=== PATIENT | male | born 1950 | race African-American/Black ===

== ENCOUNTER 2021-03-23 13:00 | Inpatient (IN) ==
[2021-03-23] MEDS ORDERED: HYDROmorphone 2 MG/1 ML VIAL IV STA (14:07)
[2021-03-23] MEDS ORDERED: ONDANSETRON 4 MG/2 ML VIAL IV STA (14:07)
[2021-03-23] MEDS ORDERED: MAGNESIUM HYDROXIDE SUSP 30 ML UDCUP PO PRN (14:13)
[2021-03-23] MEDS: DEXTROSE 5% NACL 0.45% 1,000 ML IV SCH (14:37)
[2021-03-23 14:41] LABS: Basophils % 0.2 % (0.0-0.8); Hematocrit 34.4 VOL% (42.0-52.0); Hemoglobin 10.9 GM/DL (14.0-18.0); Immature Granulocytes % 0.7 %; Lymphocytes # 0.5 10*3/uL (1.4-4.0); Lymphocytes % 3.1 % (21.2-54.2); Mean Corpuscular HGB Conc 31.7 GM/DL (32-36); Mean Platelet Volume 9.7 FL (9.6-12.0); Monocytes % 4.3 % (1.7-12.7); Neutrophils % 91.7 % (38.7-73.9); Platelet Count 439 T/CUMM (130-400); Red Cell Distribution Width 16.6 % (9.3-17.3); White Blood Count 14.6 T/CUMM (4-12)
[2021-03-23 15:04] LABS: Albumin 2.7 G/DL (3.4-5.0); Bilirubin,Total 0.5 MG/DL (0.20-1.00); Calcium 9.4 MG/DL (8.5-10.1); Osmolality,Calculated 282.7 MOS/KG (273-304); Potassium 3.9 MMOL/L (3.5-5.1); Total Protein 8.2 G/DL (6.4-8.2)
[2021-03-23 15:12] LABS: Hypochromasia 2+; Lymphocytes 4 % (20-55); Segmented Neutrophils 91 % (50-85); Total Cells Counted 100
[2021-03-23 15:13] LABS: Platelet Estimate Increased; Polychromasia Slight
[2021-03-23 17:40] LABS: INR 1.2; PT Patient Result 12.9 SECS (10.5-12.0); Partial Thromboplastin Time 25.6 SECS (23.9-33.8)
[2021-03-23] MEDS: ALBUTEROL/IPRATROPIUM 3 ML NEB RESP TX SCH (19:48)
[2021-03-23] MEDS: MEGESTROL 40 MG TABLET PO SCH (20:53)
[2021-03-23 22:28] LABS: Bacteria,Urine Occasional /HPF (Few); Bilirubin,Urine Negative (Negative); Blood, Urine Negative (Negative); Glucose,Urine (UA) Negative (Negative); Ketones,Urine Negative (Negative); Nitrite,Urine Negative (Negative); Protein,Urine 30 MG/DL; RBC,Urine 2 /HPF (0-4); Squamous Epithelial Cell,Urine Occasional /HPF (0-10); Urine Appearance Slightly Hazy (Clear); Urine Color Amber (Yellow); Urine Specific Gravity 1.026 (1.001-1.035)
[2021-03-24] MEDS: DEXTROSE 5% NACL 0.45% 1,000 ML IV SCH (01:10)
[2021-03-24 05:00] LABS: Basophils % 0.2 % (0.0-0.8); Eosinophils % 0.1 % (0.00-10.9); Hematocrit 31.6 VOL% (42.0-52.0); Hemoglobin 9.8 GM/DL (14.0-18.0); Immature Granulocytes % 0.7 %; Lymphocytes # 0.9 10*3/uL (1.4-4.0); Lymphocytes % 6.9 % (21.2-54.2); Mean Corpuscular Volume 87.1 FL (87-102); Mean Platelet Volume 10.2 FL (9.6-12.0); Monocytes % 4.3 % (1.7-12.7); Neutrophils % 87.8 % (38.7-73.9); Platelet Count 384 T/CUMM (130-400); Red Blood Count 3.63 MC/CUMM (3.8-5.5); Red Cell Distribution Width 16.4 % (9.3-17.3); White Blood Count 13.4 T/CUMM (4-12)
[2021-03-24 05:26] LABS: Albumin 2.4 G/DL (3.4-5.0); Bilirubin,Total 1.3 MG/DL (0.20-1.00); Calcium 9.1 MG/DL (8.5-10.1); Osmolality,Calculated 275.1 MOS/KG (273-304); Potassium 3.5 MMOL/L (3.5-5.1); Total Protein 7.5 G/DL (6.4-8.2)
[2021-03-24] MEDS ORDERED: MIDAZOLAM 2 MG/2 ML VIAL ONE (06:18)
[2021-03-24] MEDS ORDERED: KETAMINE 500 MG/10 ML VIAL ONE (06:18)
[2021-03-24] MEDS ORDERED: fentaNYL 100 MCG/2 ML VIAL ONE ×2 (06:18→08:15)
[2021-03-24] MEDS ORDERED: VANCOMYCIN INJ 1,000 MG in SODIUM CHLORIDE 0.9% 250 ML IV ONE ×4 (06:30→20:00)
[2021-03-24] MEDS ORDERED: ALBUTEROL/IPRATROPIUM 3 ML NEB RESP TX ONE (06:54)
[2021-03-24] MEDS ORDERED: ALBUMIN 5% 12.5 GM/250 ML VIAL IV ONE (06:56)
[2021-03-24] MEDS ORDERED: BACITRACIN OINT 0.9 GM PACK TOP ONE (06:57)
[2021-03-24] MEDS ORDERED: FAMOTIDINE 20 MG/2 ML VIAL IV ONE (07:07)
[2021-03-24] MEDS ORDERED: ETOMIDATE 40 MG/20 ML VIAL IV ONE (08:08)
[2021-03-24] MEDS ORDERED: DEXAMETHASONE 4 MG/1 ML VIAL ONE ×2 (08:08→08:58)
[2021-03-24] MEDS ORDERED: propofoL 200 MG/20 ML VIAL IV ONE (08:08)
[2021-03-24] MEDS ORDERED: ONDANSETRON 4 MG/2 ML VIAL ONE (08:08)
[2021-03-24] MEDS ORDERED: ROCURONIUM 50 MG/5 ML VIAL IV ONE (08:08)
[2021-03-24] MEDS ORDERED: LIDOCAINE 2% 5 ML VIAL ONE (08:08)
[2021-03-24] MEDS ORDERED: SEVOFLURANE 1 UNIT/15 MINUTE INH ONE ×6 (08:08→08:51)
[2021-03-24] MEDS ORDERED: TRANEXAMIC ACID 1,000 MG/10 ML VIAL ONE (08:08)
[2021-03-24] MEDS ORDERED: SUGAMMADEX 200 MG/2 ML VIAL IV ONE (08:29)
[2021-03-24] MEDS ORDERED: SODIUM CHLORIDE 0.9% 100 ML IV ONE (08:30)
[2021-03-24] MEDS ORDERED: ACETAMINOPHEN INJ 1,000 MG/100 ML VIAL IV ONE (08:36)
[2021-03-24] MEDS ORDERED: LACTATED RINGERS 1,000 ML IV ONE (08:48)
[2021-03-24] MEDS ORDERED: PHENYLEPHRINE 1 MG/10 ML SYRINGE IV ONE (08:49)
[2021-03-24] MEDS ORDERED: LIDOCAINE 1% 5 ML VIAL ONE (08:58)
[2021-03-24] MEDS ORDERED: ROPIVACAINE 0.5% 30 ML VIAL ONE (08:58)
[2021-03-24] MEDS: ALBUTEROL/IPRATROPIUM 3 ML NEB RESP TX SCH ×3 (09:00→19:40)
[2021-03-24] MEDS ORDERED: MORPHINE 2 MG/1 ML SYRINGE IV PRN (09:02)
[2021-03-24] MEDS ORDERED: ZALEPLON 5 MG CAPSULE PO PRN (09:02)
[2021-03-24] MEDS ORDERED: GLUCAGON 1 MG VIAL IM PRN (09:05)
[2021-03-24] MEDS ORDERED: DEXTROSE 50% 25 GM/50 ML VIAL IV PRN (09:05)
[2021-03-24] MEDS ORDERED: MAGNESIUM SULF RIDER 2 GM/50 ML PREMIX IV ONE (11:50)
[2021-03-24] MEDS ORDERED: NICOTINE 7 MG/24 HR PATCH TRANSDERM PRN (13:41)
[2021-03-24] MEDS: MORPHINE 2 MG/1 ML SYRINGE IV PRN (13:51)
[2021-03-24] MEDS: ASPIRIN EC 81 MG TABLET PO SCH (16:13)
[2021-03-24] MEDS: FERROUS SULFATE 325 MG TABLET PO SCH (16:13)
[2021-03-24] MEDS: INSULIN LISPRO 100 UNIT/ML SUBCUT SCH ×3 (16:14→20:56)
[2021-03-24] MEDS: METOPROLOL TARTRATE 25 MG TABLET PO SCH ×2 (16:14→20:35)
[2021-03-24] MEDS: MEGESTROL 40 MG TABLET PO SCH ×2 (16:14→20:35)
[2021-03-24] MEDS: PANTOPRAZOLE 40 MG TABLET PO SCH (16:14)
[2021-03-24] MEDS: LACTATED RINGERS 1,000 ML IV SCH ×2 (18:24→20:34)
[2021-03-24] MEDS: DOCUSATE SODIUM 100 MG CAPSULE PO SCH (20:35)
[2021-03-24] MEDS: APIXABAN 2.5 MG TABLET PO SCH (20:35)
[2021-03-25] MEDS: LACTATED RINGERS 1,000 ML IV SCH ×3 (02:49→23:20)
[2021-03-25 07:08] LABS: Basophils % 0.1 % (0.0-0.8); Hematocrit 28.1 VOL% (42.0-52.0); Immature Granulocytes % 0.6 %; Immature Granulocytes Absolute 0.09 #; Lymphocytes # 0.7 10*3/uL (1.4-4.0); Lymphocytes % 4.4 % (21.2-54.2); Mean Corpuscular Volume 86.2 FL (87-102); Mean Platelet Volume 10.4 FL (9.6-12.0); Monocytes % 4.4 % (1.7-12.7); Neutrophils % 90.5 % (38.7-73.9); Platelet Count 340 T/CUMM (130-400); Red Blood Count 3.26 MC/CUMM (3.8-5.5); Red Cell Distribution Width 16.7 % (9.3-17.3); White Blood Count 15.4 T/CUMM (4-12)
[2021-03-25 07:27] LABS: Calcium 8.5 MG/DL (8.5-10.1); Potassium 3.8 MMOL/L (3.5-5.1)
[2021-03-25 07:31] LABS: Albumin 2.1 G/DL (3.4-5.0); Bilirubin,Total 1.2 MG/DL (0.20-1.00); Calcium 8.6 MG/DL (8.5-10.1); Potassium 3.8 MMOL/L (3.5-5.1); Total Protein 6.8 G/DL (6.4-8.2)
[2021-03-25 07:34] LABS: Eosinophils 1 % (0-10); Hypochromasia Slight; Lymphocytes 7 % (20-55); Platelet Estimate Normal; Segmented Neutrophils 84 % (50-85); Total Cells Counted 100
[2021-03-25] MEDS: ALBUTEROL/IPRATROPIUM 3 ML NEB RESP TX SCH ×3 (07:40→21:44)
[2021-03-25] MEDS: DOCUSATE SODIUM 100 MG CAPSULE PO SCH ×2 (09:02→20:46)
[2021-03-25] MEDS: METOPROLOL TARTRATE 25 MG TABLET PO SCH ×2 (09:03→20:46)
[2021-03-25] MEDS: MULTIVITAMIN (OCUVITE) TABLET PO SCH (09:04)
[2021-03-25] MEDS: MEGESTROL 40 MG TABLET PO SCH ×2 (09:04→20:46)
[2021-03-25] MEDS: ASPIRIN EC 81 MG TABLET PO SCH (09:04)
[2021-03-25] MEDS: FERROUS SULFATE 325 MG TABLET PO SCH (09:04)
[2021-03-25] MEDS: APIXABAN 2.5 MG TABLET PO SCH ×2 (09:05→20:46)
[2021-03-25] MEDS: PANTOPRAZOLE 40 MG TABLET PO SCH (09:05)
[2021-03-25] MEDS: INSULIN LISPRO 100 UNIT/ML SUBCUT SCH (09:28)
[2021-03-26] MEDS: ALBUTEROL/IPRATROPIUM 3 ML NEB RESP TX SCH ×3 (01:50→18:53)
[2021-03-26] MEDS: LACTATED RINGERS 1,000 ML IV SCH ×4 (02:23→23:45)
[2021-03-26 06:04] LABS: Basophils % 0.1 % (0.0-0.8); Eosinophils % 0.4 % (0.00-10.9); Hematocrit 27.8 VOL% (42.0-52.0); Hemoglobin 8.8 GM/DL (14.0-18.0); Immature Granulocytes % 0.6 %; Immature Granulocytes Absolute 0.06 #; Lymphocytes % 9.4 % (21.2-54.2); Mean Corpuscular HGB Conc 31.7 GM/DL (32-36); Mean Corpuscular Volume 85.5 FL (87-102); Mean Platelet Volume 10.5 FL (9.6-12.0); Monocytes % 6.4 % (1.7-12.7); Neutrophils % 83.1 % (38.7-73.9); Platelet Count 365 T/CUMM (130-400); Red Blood Count 3.25 MC/CUMM (3.8-5.5); Red Cell Distribution Width 16.7 % (9.3-17.3); White Blood Count 10.4 T/CUMM (4-12)
[2021-03-26 06:37] LABS: Calcium 8.2 MG/DL (8.5-10.1); Osmolality,Calculated 275.7 MOS/KG (273-304); Potassium 3.6 MMOL/L (3.5-5.1)
[2021-03-26] MEDS: METOPROLOL TARTRATE 25 MG TABLET PO SCH ×2 (09:00→20:21)
[2021-03-26] MEDS: FERROUS SULFATE 325 MG TABLET PO SCH (09:00)
[2021-03-26] MEDS: ASPIRIN EC 81 MG TABLET PO SCH (09:00)
[2021-03-26] MEDS: DOCUSATE SODIUM 100 MG CAPSULE PO SCH ×2 (09:00→20:21)
[2021-03-26] MEDS: PANTOPRAZOLE 40 MG TABLET PO SCH (09:00)
[2021-03-26] MEDS: MEGESTROL 40 MG TABLET PO SCH ×2 (09:01→20:21)
[2021-03-26] MEDS: MULTIVITAMIN (OCUVITE) TABLET PO SCH (09:01)
[2021-03-26] MEDS: APIXABAN 2.5 MG TABLET PO SCH ×2 (09:01→20:22)
[2021-03-27 06:21] LABS: Basophils % 0.4 % (0.0-0.8); Eosinophils # 0.2 10*3/uL (0.0-0.87); Eosinophils % 1.4 % (0.00-10.9); Hematocrit 28.4 VOL% (42.0-52.0); Hemoglobin 9.1 GM/DL (14.0-18.0); Immature Granulocytes % 0.5 %; Immature Granulocytes Absolute 0.06 #; Lymphocytes # 1.2 10*3/uL (1.4-4.0); Lymphocytes % 10.7 % (21.2-54.2); Mean Corpuscular Volume 84.8 FL (87-102); Monocytes % 7.6 % (1.7-12.7); Neutrophils % 79.4 % (38.7-73.9); Platelet Count 400 T/CUMM (130-400); Red Blood Count 3.35 MC/CUMM (3.8-5.5); Red Cell Distribution Width 16.6 % (9.3-17.3); White Blood Count 11.4 T/CUMM (4-12)
[2021-03-27] MEDS: ALBUTEROL/IPRATROPIUM 3 ML NEB RESP TX SCH ×3 (08:17→19:30)
[2021-03-27] MEDS: DOCUSATE SODIUM 100 MG CAPSULE PO SCH ×2 (09:50→20:24)
[2021-03-27] MEDS: APIXABAN 2.5 MG TABLET PO SCH ×2 (09:50→20:24)
[2021-03-27] MEDS: MEGESTROL 40 MG TABLET PO SCH ×2 (09:50→20:24)
[2021-03-27] MEDS: MULTIVITAMIN (OCUVITE) TABLET PO SCH (09:50)
[2021-03-27] MEDS: ASPIRIN EC 81 MG TABLET PO SCH (09:51)
[2021-03-27] MEDS: FERROUS SULFATE 325 MG TABLET PO SCH (09:51)
[2021-03-27] MEDS: PANTOPRAZOLE 40 MG TABLET PO SCH (09:52)
[2021-03-27] MEDS: METOPROLOL TARTRATE 25 MG TABLET PO SCH ×2 (10:19→20:24)
[2021-03-27] MEDS: MAGNESIUM HYDROXIDE SUSP 30 ML UDCUP PO PRN (15:31)
[2021-03-28] MEDS: MORPHINE 2 MG/1 ML SYRINGE IV PRN (05:36)
[2021-03-28] MEDS: ALBUTEROL/IPRATROPIUM 3 ML NEB RESP TX SCH (07:56)
[2021-03-28] MEDS: MULTIVITAMIN (OCUVITE) TABLET PO SCH (09:52)
[2021-03-28] MEDS: APIXABAN 2.5 MG TABLET PO SCH (09:52)
[2021-03-28] MEDS: DOCUSATE SODIUM 100 MG CAPSULE PO SCH (09:52)
[2021-03-28] MEDS: MEGESTROL 40 MG TABLET PO SCH (09:52)
[2021-03-28] MEDS: METOPROLOL TARTRATE 25 MG TABLET PO SCH (09:53)
[2021-03-28] MEDS: PANTOPRAZOLE 40 MG TABLET PO SCH (09:53)
[2021-03-28] MEDS: MAGNESIUM HYDROXIDE SUSP 30 ML UDCUP PO PRN (09:53)
[2021-03-28] MEDS: ASPIRIN EC 81 MG TABLET PO SCH (09:53)
[2021-03-28] MEDS: FERROUS SULFATE 325 MG TABLET PO SCH (09:53)
[2021-03-28 12:43] VITALS: BP 132/62
== END 2021-03-28 13:43 | DRG 522 ==
LOC: EDBD → EDUNIT# → N.ED 13:00 → N.EDINP 14:12 → N.TELEN 18:05
PROVIDERS: ADMIT Internal Medicine; ATTEND Internal Medicine

== ENCOUNTER 2021-06-06 13:31 | Inpatient (IN) ==
[2021-06-06] MEDS ORDERED: NALOXONE 0.4 MG/ML VIAL ONE (13:45)
[2021-06-06] MEDS ORDERED: PIPERACILLIN/TAZOBACTAM 3,375 MG in SODIUM CHLORIDE 0.9% 100 ML IV STA (13:57)
[2021-06-06] MEDS ORDERED: NALOXONE 0.4 MG/ML VIAL IV STA (14:16)
[2021-06-06 14:22] LABS: ABG Base Excess -1.8 MMOL/L (-2.5-2.5); ABG HCO3 22.6 MMOL/L (20-26); ABG PCO2 40.9 MM HG (35-48); ABG PH 7.365 (7.35-7.45); ABG PO2 62.2 MM HG (80-95)
[2021-06-06 14:31] LABS: Albumin 2.4 G/DL (3.4-5.0); Bilirubin,Total 0.4 MG/DL (0.20-1.00); Calcium 8.4 MG/DL (8.5-10.1); Osmolality,Calculated 288.4 MOS/KG (273-304); Potassium 4.6 MMOL/L (3.5-5.1); Total Protein 6.9 G/DL (6.4-8.2)
[2021-06-06 14:35] LABS: Eosinophils % 0.4 % (0.00-10.9); Hemoglobin 11.3 GM/DL (14.0-18.0); Immature Granulocytes % 0.7 %; Immature Granulocytes Absolute 0.05 #; Lymphocytes # 1.1 10*3/uL (1.4-4.0); Lymphocytes % 15.2 % (21.2-54.2); Mean Corpuscular HGB Conc 29.7 GM/DL (32-36); Mean Corpuscular Volume 87.2 FL (87-102); Mean Platelet Volume 11.4 FL (9.6-12.0); Monocytes % 3.1 % (1.7-12.7); Neutrophils % 80.6 % (38.7-73.9); Platelet Count 202 T/CUMM (130-400); Red Blood Count 4.36 MC/CUMM (3.8-5.5); Red Cell Distribution Width 23.7 % (9.3-17.3); White Blood Count 7.1 T/CUMM (4-12)
[2021-06-06] MEDS ORDERED: SODIUM CHLORIDE 0.9% 2,040 ML IV STA (14:36)
[2021-06-06 14:58] LABS: Bacteria,Urine Occasional /HPF (Few); Bilirubin,Urine Negative (Negative); Blood, Urine Negative (Negative); Glucose,Urine (UA) Negative (Negative); Hyaline Casts,Urine 9 /LPF (0-3); Ketones,Urine Negative (Negative); Mucus,Urine Many /LPF (Occasional); Nitrite,Urine Negative (Negative); Protein,Urine 30 MG/DL; RBC,Urine 7 /HPF (0-4); Squamous Epithelial Cell,Urine Occasional /HPF (0-10); Urine Appearance Slightly Hazy (Clear); Urine Color Amber (Yellow); Urine Specific Gravity 1.024 (1.001-1.035)
[2021-06-06] MEDS ORDERED: hydrALAZINE 20 MG/1 ML VIAL IV PRN (16:06)
[2021-06-06] MEDS ORDERED: BISACODYL 5 MG TABLET PO PRN (16:06)
[2021-06-06] MEDS ORDERED: ONDANSETRON 4 MG/2 ML VIAL IV PRN (16:06)
[2021-06-06] MEDS ORDERED: ALBUTEROL 2.5 MG/3 ML NEB RESP TX PRN ×2 (16:06)
[2021-06-06] MEDS ORDERED: ACETAMINOPHEN 325 MG TABLET PO PRN (16:06)
[2021-06-06] MEDS ORDERED: SIMETHICONE CHEW 125 MG TABLET PO PRN (16:06)
[2021-06-06 16:07] LABS: Barbiturates Screen,Urine Negative (Negative); Benzodiazepines Screen,Urine Negative (Negative); Cannabinoid Screen,Urine Negative (Negative); Opiate Screen,Urine Negative (Negative); Phencyclidine Screen,Urine Negative (Negative)
[2021-06-06] MEDS ORDERED: SODIUM CHLORIDE 0.9% 1,000 ML IV ONE (16:24)
[2021-06-06] MEDS ORDERED: GLUCAGON 1 MG VIAL IM PRN (16:24)
[2021-06-06] MEDS ORDERED: DEXTROSE 50% 25 GM/50 ML VIAL IV PRN (16:24)
[2021-06-06 16:37] VITALS: BP 127/92
[2021-06-06] MEDS: methylPREDNISolone SOD SUC 40 MG/1 ML VIAL IV SCH (16:46)
[2021-06-06 16:50] LABS: Free T4 (Free Thyroxine) 0.85 NG/DL (0.76-1.46); Thyroid Stimulating Hormone 3.56 uIU/ml (0.358-3.74)
[2021-06-06] MEDS: ALBUTEROL/IPRATROPIUM 3 ML NEB RESP TX SCH (18:45)
[2021-06-06] MEDS: ROSUVASTATIN 10 MG TABLET PO SCH (21:38)
[2021-06-06] MEDS: DOCUSATE SODIUM 100 MG CAPSULE PO SCH (21:38)
[2021-06-06] MEDS: METOPROLOL TARTRATE 25 MG TABLET PO SCH (21:38)
[2021-06-06] MEDS: PIPERACILLIN/TAZOBACTAM 3,375 MG in SODIUM CHLORIDE 0.9% 100 ML IV SCH (23:36)
[2021-06-07] MEDS: ALBUTEROL/IPRATROPIUM 3 ML NEB RESP TX SCH ×4 (01:01→20:35)
[2021-06-07] MEDS: methylPREDNISolone SOD SUC 40 MG/1 ML VIAL IV SCH ×3 (02:41→17:07)
[2021-06-07 04:07] LABS: Hematocrit 39.1 VOL% (42.0-52.0); Hemoglobin 11.3 GM/DL (14.0-18.0); Immature Granulocytes % 0.7 %; Immature Granulocytes Absolute 0.06 #; Lymphocytes # 0.9 10*3/uL (1.4-4.0); Lymphocytes % 10.6 % (21.2-54.2); Mean Corpuscular HGB Conc 28.9 GM/DL (32-36); Mean Corpuscular Volume 89.9 FL (87-102); Mean Platelet Volume 11.3 FL (9.6-12.0); Monocytes % 2.3 % (1.7-12.7); Neutrophils % 86.4 % (38.7-73.9); Platelet Count 200 T/CUMM (130-400); Red Blood Count 4.35 MC/CUMM (3.8-5.5); Red Cell Distribution Width 23.8 % (9.3-17.3); White Blood Count 8.9 T/CUMM (4-12)
[2021-06-07 04:27] LABS: Calcium 8.2 MG/DL (8.5-10.1); Potassium 4.6 MMOL/L (3.5-5.1)
[2021-06-07 04:30] LABS: % Iron Saturation 10.7 % (18-50); Ferritin 350.6 ng/mL (26-388)
[2021-06-07] MEDS: PIPERACILLIN/TAZOBACTAM 3,375 MG in SODIUM CHLORIDE 0.9% 100 ML IV SCH ×3 (06:40→23:00)
[2021-06-07] MEDS: DOCUSATE SODIUM 100 MG CAPSULE PO SCH ×2 (09:06→21:52)
[2021-06-07] MEDS: MULTIVITAMIN (OCUVITE) TABLET PO SCH (09:06)
[2021-06-07] MEDS: FERROUS SULFATE 325 MG TABLET PO SCH (09:06)
[2021-06-07] MEDS: MAGNESIUM HYDROXIDE SUSP 30 ML UDCUP PO SCH (09:06)
[2021-06-07] MEDS: PANTOPRAZOLE 40 MG TABLET PO SCH (09:06)
[2021-06-07] MEDS: METOPROLOL TARTRATE 25 MG TABLET PO SCH ×2 (09:06→21:52)
[2021-06-07] MEDS: CHOLECALCIFEROL 1,000 UNIT TABLET PO SCH (09:07)
[2021-06-07] MEDS ORDERED: NICOTINE 21 MG/24 HR PATCH TRANSDERM PRN (12:20)
[2021-06-07] MEDS: DEXTROSE 5% NACL 0.45% 1,000 ML IV SCH (13:32)
[2021-06-07 14:10] LABS: ABG Base Excess -5.1 MMOL/L (-2.5-2.5); ABG HCO3 20.3 MMOL/L (20-26); ABG Oxygen Saturation 84.4 % (95-100); ABG PCO2 39.1 MM HG (35-48); ABG PH 7.333 (7.35-7.45); ABG TCO2 21.5 MMOL/L (23-27)
[2021-06-07] MEDS: ENOXAPARIN 40 MG/0.4 ML SYRINGE SUBCUT SCH (17:06)
[2021-06-07] MEDS: ROSUVASTATIN 10 MG TABLET PO SCH (21:52)
[2021-06-08] MEDS: methylPREDNISolone SOD SUC 40 MG/1 ML VIAL IV SCH ×3 (02:00→18:29)
[2021-06-08 05:28] LABS: Hematocrit 36.6 VOL% (42.0-52.0); Hemoglobin 10.7 GM/DL (14.0-18.0); Immature Granulocytes % 0.7 %; Immature Granulocytes Absolute 0.07 #; Lymphocytes # 0.6 10*3/uL (1.4-4.0); Lymphocytes % 6.5 % (21.2-54.2); Mean Corpuscular HGB Conc 29.2 GM/DL (32-36); Mean Corpuscular Volume 88.6 FL (87-102); Mean Platelet Volume 11.5 FL (9.6-12.0); Monocytes % 3.1 % (1.7-12.7); NRBC # 0.05 10*3/uL; Neutrophils % 89.7 % (38.7-73.9); Platelet Count 168 T/CUMM (130-400); Red Blood Count 4.13 MC/CUMM (3.8-5.5); Red Cell Distribution Width 24.1 % (9.3-17.3); White Blood Count 9.9 T/CUMM (4-12)
[2021-06-08] MEDS: DEXTROSE 5% NACL 0.45% 1,000 ML IV SCH (05:37)
[2021-06-08 05:43] LABS: Albumin 2.4 G/DL (3.4-5.0); Bilirubin,Total 0.5 MG/DL (0.20-1.00); Calcium 8.4 MG/DL (8.5-10.1); Osmolality,Calculated 298.8 MOS/KG (273-304); Potassium 4.2 MMOL/L (3.5-5.1); Total Protein 7.1 G/DL (6.4-8.2)
[2021-06-08] MEDS: PIPERACILLIN/TAZOBACTAM 3,375 MG in SODIUM CHLORIDE 0.9% 100 ML IV SCH ×2 (07:00→15:57)
[2021-06-08] MEDS: ALBUTEROL/IPRATROPIUM 3 ML NEB RESP TX SCH ×4 (07:15→21:01)
[2021-06-08] MEDS: METOPROLOL TARTRATE 25 MG TABLET PO SCH (09:00)
[2021-06-08] MEDS: FERROUS SULFATE 325 MG TABLET PO SCH (10:51)
[2021-06-08] MEDS: DOCUSATE SODIUM 100 MG CAPSULE PO SCH (10:51)
[2021-06-08] MEDS: MAGNESIUM HYDROXIDE SUSP 30 ML UDCUP PO SCH (10:51)
[2021-06-08] MEDS: MULTIVITAMIN (OCUVITE) TABLET PO SCH (10:52)
[2021-06-08] MEDS: PANTOPRAZOLE 40 MG TABLET PO SCH (10:52)
[2021-06-08] MEDS: CHOLECALCIFEROL 1,000 UNIT TABLET PO SCH (10:52)
[2021-06-08] MEDS ORDERED: FUROSEMIDE 40 MG/4 ML VIAL IV SCH (11:30)
[2021-06-08] MEDS ORDERED: fentaNYL 100 MCG/2 ML VIAL ONE (12:49)
[2021-06-08] MEDS ORDERED: ROCURONIUM 50 MG/5 ML VIAL IV ONE (12:49)
[2021-06-08] MEDS ORDERED: ETOMIDATE 40 MG/20 ML VIAL IV ONE (12:49)
[2021-06-08] MEDS ORDERED: LIDOCAINE 2% 5 ML VIAL ONE (12:49)
[2021-06-08] MEDS ORDERED: ONDANSETRON 4 MG/2 ML VIAL ONE (12:49)
[2021-06-08] MEDS ORDERED: propofoL 200 MG/20 ML VIAL IV ONE (12:49)
[2021-06-08] MEDS ORDERED: SEVOFLURANE 1 UNIT/15 MINUTE INH ONE ×4 (12:49→12:56)
[2021-06-08] MEDS ORDERED: DEXAMETHASONE 4 MG/1 ML VIAL ONE (12:49)
[2021-06-08] MEDS ORDERED: SUCCINYLCHOLINE 200 MG/10 ML VIAL ONE (12:53)
[2021-06-08] MEDS ORDERED: HEPARIN/NACL 0.9% 2 UNITS/ML 1,000 UNIT/500 ML BAG IV ONE (13:05)
[2021-06-08] MEDS ORDERED: PHENYLEPHRINE 10 MG/1 ML VIAL IV ONE ×2 (14:32→14:45)
[2021-06-08] MEDS ORDERED: ePHEDrine 50 MG/ML VIAL ONE (14:36)
[2021-06-08] MEDS ORDERED: CALCIUM CHLORIDE 1,000 MG/10 ML VIAL IV ONE ×2 (14:55→15:41)
[2021-06-08] MEDS ORDERED: EPINEPHrine 1 MG/ML VIAL ONE ×2 (14:55→15:41)
[2021-06-08] MEDS ORDERED: ALBUMIN 5% 12.5 GM/250 ML VIAL IV ONE (15:11)
[2021-06-08] MEDS ORDERED: ALBUMIN 5% 0 GM/0 ML VIAL IV ONE (15:11)
[2021-06-08] MEDS ORDERED: AMIODARONE 150 MG/3 ML VIAL ONE (15:39)
[2021-06-08] MEDS ORDERED: NOREPINEPHRINE 4 MG/4 ML VIAL IV ONE (15:49)
[2021-06-08] MEDS: ENOXAPARIN 40 MG/0.4 ML SYRINGE SUBCUT SCH (18:29)
== END 2021-06-08 15:29 | disposition expired | DRG 166 ==
LOC: EDUNIT# → EDBD → N.ED 13:31 → N.EDINP 16:06 → N.CC 17:30
PROVIDERS: ADMIT Family Medicine; ATTEND Family Medicine